=== PATIENT | female | born 1935 | race Caucasian/White ===

== ENCOUNTER 2019-10-11 13:30 | Inpatient (IN) ==
[2019-10-11] MEDS ORDERED: MAGNESIUM SULF RIDER 4 GM in PREMIX 1 EACH IV PRN (13:32)
[2019-10-11] MEDS ORDERED: MAGNESIUM SULF RIDER 2 GM in PREMIX 1 EACH IV PRN (13:32)
[2019-10-11] MEDS ORDERED: MORPHINE 4 MG/1 ML VIAL IV PRN (13:32)
[2019-10-11] MEDS ORDERED: BISACODYL 5 MG TABLET PO PRN (13:32)
[2019-10-11] MEDS ORDERED: ACETAMINOPHEN 325 MG TABLET PO PRN (13:32)
[2019-10-11] MEDS ORDERED: LACTULOSE 20 GM/30 ML UDCUP PO PRN (13:32)
[2019-10-11] MEDS ORDERED: ONDANSETRON 4 MG/2 ML VIAL IV PRN (13:32)
[2019-10-11] MEDS ORDERED: POTASSIUM CHLORIDE 20 MEQ TABLET PO PRN (13:32)
[2019-10-11] MEDS ORDERED: ZALEPLON 5 MG CAPSULE PO PRN (13:32)
[2019-10-11] MEDS ORDERED: hydrALAZINE 20 MG/1 ML VIAL IV PRN (13:32)
[2019-10-11] MEDS ORDERED: diphenhydrAMINE CAP 25 MG CAPSULE PO PRN (13:32)
[2019-10-11] MEDS ORDERED: guaiFENesin/DM ER 600-30 MG TABLET PO PRN (13:32)
[2019-10-11] MEDS ORDERED: SIMETHICONE CHEW 125 MG TABLET PO PRN (13:32)
[2019-10-11] MEDS ORDERED: ENOXAPARIN 40 MG/0.4 ML SYRINGE SUBCUT SCH (14:00)
[2019-10-11] MEDS ORDERED: NITROGLYCERIN DRIP 50 MG/250 ML BOTTLE IV PRN (15:16)
[2019-10-11] MEDS ORDERED: DEXTROSE 50% 25 GM/50 ML VIAL IV PRN (15:55)
[2019-10-11] MEDS ORDERED: GLUCAGON 1 MG VIAL IM PRN (15:55)
[2019-10-11] MEDS: HEPARIN DRIP 25,000 UNITS/500 ML PREMIX IV SCH (16:30)
[2019-10-11 16:56] LABS: CKMB % 7.2 %
[2019-10-11 17:05] LABS: Troponin I 5.42 NG/ML (0.00-0.045)
[2019-10-11] MEDS: INSULIN LISPRO 100 UNIT/ML SUBCUT SCH ×2 (18:12→23:19)
[2019-10-11 20:16] LABS: CKMB % 6.7 %
[2019-10-11 20:23] LABS: Troponin I 4.83 NG/ML (0.00-0.045)
[2019-10-11] MEDS: MELATONIN 3 MG TABLET PO SCH (20:33)
[2019-10-11] MEDS: carvediloL 3.125 MG TABLET PO SCH (20:34)
[2019-10-11] MEDS: DILTIAZEM 30 MG TABLET PO SCH (20:34)
[2019-10-12 01:38] LABS: Basophils # 0.1 10*3/uL (0.0-0.2); Basophils % 0.6 % (0.0-0.8); Eosinophils # 0.4 10*3/uL (0.0-0.87); Hematocrit 29.5 VOL% (35.7-47.0); Hemoglobin 8.7 GM/DL (12.0-16.0); Immature Granulocytes % 0.2 %; Immature Granulocytes Absolute 0.02 #; Lymphocytes # 2.6 10*3/uL (1.4-4.0); Lymphocytes % 31.9 % (21.3-54.2); Mean Corpuscular HGB Conc 29.5 GM/DL (32-36); Mean Corpuscular Volume 79.3 FL (87-102); Mean Platelet Volume 10.4 FL (9.6-12.0); Neutrophils % 55.3 % (38.7-73.9); Platelet Count 218 T/CUMM (130-400); Red Blood Count 3.72 MC/CUMM (3.8-5.5); Red Cell Distribution Width 16.7 % (9.3-17.3); White Blood Count 8.1 T/CUMM (4-12)
[2019-10-12 02:09] LABS: Albumin 2.9 G/DL (3.4-5.0); Bilirubin,Total 0.5 MG/DL (0.2-1.0); Calcium 8.9 MG/DL (8.5-10.1); Osmolality,Calculated 277.2 MOS/KG (273-304); Risk Ratio 4.84; Thyroid Stimulating Hormone 4.19 uIU/ml (0.358-3.74); VLDL CHOLESTEROL 44.4 MG/DL
[2019-10-12] MEDS: HEPARIN DRIP 25,000 UNITS/500 ML PREMIX IV SCH (06:32)
[2019-10-12] MEDS: gemfibroziL 600 MG TABLET PO SCH ×2 (06:35→16:14)
[2019-10-12] MEDS: INSULIN LISPRO 100 UNIT/ML SUBCUT SCH ×4 (06:35→20:54)
[2019-10-12] MEDS ORDERED: diphenhydrAMINE CAP 25 MG CAPSULE PO ONE (08:17)
[2019-10-12] MEDS ORDERED: DIAZEPAM 5 MG TABLET PO ONE (08:17)
[2019-10-12] MEDS ORDERED: HEPARIN/NACL 0.9% 2 UNITS/ML 1,000 ML IV ONE (08:26)
[2019-10-12] MEDS ORDERED: HYDROCORTISONE 100 MG VIAL IV ONE (08:27)
[2019-10-12] MEDS ORDERED: diphenhydrAMINE CAP 50 MG CAPSULE PO ONE (08:28)
[2019-10-12] MEDS ORDERED: LIDOCAINE 1% 20 ML VIAL ONE (09:01)
[2019-10-12] MEDS ORDERED: fentaNYL 100 MCG/2 ML VIAL ONE (09:03)
[2019-10-12] MEDS ORDERED: MIDAZOLAM 2 MG/2 ML VIAL ONE (09:03)
[2019-10-12] MEDS ORDERED: EPTIFIBATIDE 20,000 MCG/10 ML VIAL ONE (09:17)
[2019-10-12] MEDS ORDERED: EPTIFIBATIDE 0 MG/0 ML BOTTLE IV ONE (09:17)
[2019-10-12] MEDS: SODIUM CHLORIDE 0.45% 1,000 ML IV SCH (10:15)
[2019-10-12] MEDS: DILTIAZEM 30 MG TABLET PO SCH ×3 (12:27→20:45)
[2019-10-12] MEDS: GLIMEPIRIDE 4 MG TABLET PO SCH (12:45)
[2019-10-12] MEDS: ASPIRIN EC 81 MG TABLET PO SCH (12:45)
[2019-10-12] MEDS: FERROUS SULFATE 325 MG TABLET PO SCH (12:45)
[2019-10-12] MEDS: ISOSORBIDE MONONITRATE 30 MG TABLET PO SCH (12:45)
[2019-10-12] MEDS: carvediloL 3.125 MG TABLET PO SCH ×2 (12:45→20:46)
[2019-10-12] MEDS: EZETIMIBE 10 MG TABLET PO SCH (12:46)
[2019-10-12] MEDS: PANTOPRAZOLE 40 MG TABLET PO SCH (12:46)
[2019-10-12] MEDS: CLOPIDOGREL 75 MG TABLET PO SCH (12:46)
[2019-10-12] MEDS: MAGNESIUM OXIDE 400 MG TABLET PO SCH (12:46)
[2019-10-12 14:04] LABS: Basophils % 0.2 % (0.0-0.8); Eosinophils % 0.2 % (0.00-10.9); Hematocrit 31.2 VOL% (35.7-47.0); Hemoglobin 9.1 GM/DL (12.0-16.0); Immature Granulocytes % 0.5 %; Immature Granulocytes Absolute 0.03 #; Lymphocytes # 0.7 10*3/uL (1.4-4.0); Mean Corpuscular HGB Conc 29.2 GM/DL (32-36); Mean Corpuscular Volume 82.1 FL (87-102); Mean Platelet Volume 10.8 FL (9.6-12.0); Monocytes % 0.9 % (1.7-12.7); Neutrophils % 85.2 % (38.7-73.9); Platelet Count 218 T/CUMM (130-400); Red Cell Distribution Width 16.7 % (9.3-17.3); White Blood Count 5.6 T/CUMM (4-12)
[2019-10-12] MEDS: diphenhydrAMINE CAP 25 MG CAPSULE PO SCH ×2 (14:32→17:23)
[2019-10-12 14:35] LABS: % Iron Saturation 22.9 % (18-50)
[2019-10-12 14:54] LABS: Folate 14.7 NG/ML (5.4-24.0)
[2019-10-12] MEDS: MELATONIN 3 MG TABLET PO SCH (20:47)
[2019-10-12] MEDS: INSULIN GLARGINE 100 UNIT/ML SUBCUT SCH (20:51)
[2019-10-12] MEDS ORDERED: NON-FORMULARY MEDICATION (Omeprazole 20 MG) PO SCH (21:00)
[2019-10-13 06:10] LABS: Basophils % 0.4 % (0.0-0.8); Eosinophils # 0.1 10*3/uL (0.0-0.87); Eosinophils % 1.6 % (0.00-10.9); Hematocrit 28.9 VOL% (35.7-47.0); Hemoglobin 8.5 GM/DL (12.0-16.0); Immature Granulocytes % 0.4 %; Immature Granulocytes Absolute 0.03 #; Lymphocytes # 2.9 10*3/uL (1.4-4.0); Lymphocytes % 36.4 % (21.3-54.2); Mean Corpuscular HGB Conc 29.4 GM/DL (32-36); Mean Corpuscular Volume 82.1 FL (87-102); Mean Platelet Volume 11.2 FL (9.6-12.0); Monocytes % 8.8 % (1.7-12.7); Neutrophils % 52.4 % (38.7-73.9); Platelet Count 223 T/CUMM (130-400); Red Blood Count 3.52 MC/CUMM (3.8-5.5)
[2019-10-13 06:39] LABS: Calcium 8.7 MG/DL (8.5-10.1); Osmolality,Calculated 284.5 MOS/KG (273-304)
[2019-10-13] MEDS: gemfibroziL 600 MG TABLET PO SCH ×2 (09:38→17:14)
[2019-10-13] MEDS: ISOSORBIDE MONONITRATE 30 MG TABLET PO SCH (09:39)
[2019-10-13] MEDS: GLIMEPIRIDE 4 MG TABLET PO SCH (09:39)
[2019-10-13] MEDS: FERROUS SULFATE 325 MG TABLET PO SCH (09:39)
[2019-10-13] MEDS: MAGNESIUM OXIDE 400 MG TABLET PO SCH (09:39)
[2019-10-13] MEDS: ASPIRIN EC 81 MG TABLET PO SCH (09:39)
[2019-10-13] MEDS: EZETIMIBE 10 MG TABLET PO SCH (09:40)
[2019-10-13] MEDS: PANTOPRAZOLE 40 MG TABLET PO SCH (09:40)
[2019-10-13] MEDS: CLOPIDOGREL 75 MG TABLET PO SCH (09:40)
[2019-10-13] MEDS: carvediloL 25 MG TABLET PO SCH ×2 (10:35→22:01)
[2019-10-13] MEDS: INSULIN LISPRO 100 UNIT/ML SUBCUT SCH ×4 (10:36→22:00)
[2019-10-13] MEDS: DILTIAZEM 30 MG TABLET PO SCH (11:03)
[2019-10-13] MEDS: carvediloL 3.125 MG TABLET PO SCH (11:03)
[2019-10-13] MEDS: INSULIN GLARGINE 100 UNIT/ML SUBCUT SCH (22:00)
[2019-10-13] MEDS: MELATONIN 3 MG TABLET PO SCH (22:01)
[2019-10-14 05:02] LABS: Basophils # 0.1 10*3/uL (0.0-0.2); Basophils % 0.7 % (0.0-0.8); Eosinophils # 0.4 10*3/uL (0.0-0.87); Eosinophils % 4.6 % (0.00-10.9); Hematocrit 29.2 VOL% (35.7-47.0); Hemoglobin 8.8 GM/DL (12.0-16.0); Immature Granulocytes % 0.3 %; Immature Granulocytes Absolute 0.02 #; Lymphocytes # 2.8 10*3/uL (1.4-4.0); Lymphocytes % 36.6 % (21.3-54.2); Mean Corpuscular HGB Conc 30.1 GM/DL (32-36); Mean Corpuscular Volume 79.3 FL (87-102); Mean Platelet Volume 10.6 FL (9.6-12.0); Monocytes % 9.3 % (1.7-12.7); Neutrophils % 48.5 % (38.7-73.9); Platelet Count 210 T/CUMM (130-400); Red Blood Count 3.68 MC/CUMM (3.8-5.5); Red Cell Distribution Width 17.1 % (9.3-17.3); White Blood Count 7.6 T/CUMM (4-12)
[2019-10-14 05:26] LABS: Calcium 8.8 MG/DL (8.5-10.1); Osmolality,Calculated 283.4 MOS/KG (273-304)
[2019-10-14] MEDS: INSULIN LISPRO 100 UNIT/ML SUBCUT SCH ×4 (08:34→20:12)
[2019-10-14] MEDS: GLIMEPIRIDE 4 MG TABLET PO SCH (09:38)
[2019-10-14] MEDS: PANTOPRAZOLE 40 MG TABLET PO SCH (09:38)
[2019-10-14] MEDS: MAGNESIUM OXIDE 400 MG TABLET PO SCH (09:38)
[2019-10-14] MEDS: FERROUS SULFATE 325 MG TABLET PO SCH (09:39)
[2019-10-14] MEDS: carvediloL 25 MG TABLET PO SCH ×2 (09:39→21:59)
[2019-10-14] MEDS: ISOSORBIDE MONONITRATE 30 MG TABLET PO SCH (09:39)
[2019-10-14] MEDS: CLOPIDOGREL 75 MG TABLET PO SCH (09:40)
[2019-10-14] MEDS: gemfibroziL 600 MG TABLET PO SCH ×2 (09:40→16:41)
[2019-10-14] MEDS: EZETIMIBE 10 MG TABLET PO SCH (09:41)
[2019-10-14] MEDS: ASPIRIN EC 81 MG TABLET PO SCH (09:42)
[2019-10-14] MEDS: ALUMINUM/MAGNES/SIMETH MAX STR 30 ML UDCUP PO PRN (13:20)
[2019-10-14] MEDS ORDERED: ALUM/MAG/SIMETH/LIDO VISC 1:1 30 ML BOTTLE PO ONE (16:12)
[2019-10-14] MEDS: CALCIUM CARBONATE CHEW 500 MG TABLET PO PRN (20:50)
[2019-10-14] MEDS: MELATONIN 3 MG TABLET PO SCH (21:59)
[2019-10-14] MEDS: INSULIN GLARGINE 100 UNIT/ML SUBCUT SCH (21:59)
[2019-10-15] MEDS: CALCIUM CARBONATE CHEW 500 MG TABLET PO PRN (02:22)
[2019-10-15] MEDS: ALUMINUM/MAGNES/SIMETH MAX STR 30 ML UDCUP PO PRN (02:22)
[2019-10-15 06:27] LABS: Basophils % 0.5 % (0.0-0.8); Eosinophils # 0.3 10*3/uL (0.0-0.87); Eosinophils % 3.8 % (0.00-10.9); Hematocrit 29.9 VOL% (35.7-47.0); Immature Granulocytes % 0.5 %; Immature Granulocytes Absolute 0.04 #; Lymphocytes # 2.9 10*3/uL (1.4-4.0); Lymphocytes % 38.1 % (21.3-54.2); Mean Corpuscular HGB Conc 30.1 GM/DL (32-36); Mean Corpuscular Volume 79.1 FL (87-102); Mean Platelet Volume 11.2 FL (9.6-12.0); Monocytes % 8.9 % (1.7-12.7); Neutrophils % 48.2 % (38.7-73.9); Platelet Count 241 T/CUMM (130-400); Red Blood Count 3.78 MC/CUMM (3.8-5.5); Red Cell Distribution Width 17.1 % (9.3-17.3); White Blood Count 7.7 T/CUMM (4-12)
[2019-10-15 06:54] LABS: Calcium 9.4 MG/DL (8.5-10.1); Osmolality,Calculated 278.8 MOS/KG (273-304)
[2019-10-15] MEDS: INSULIN LISPRO 100 UNIT/ML SUBCUT SCH ×2 (09:15→11:56)
[2019-10-15] MEDS: CLOPIDOGREL 75 MG TABLET PO SCH (09:38)
[2019-10-15] MEDS: FERROUS SULFATE 325 MG TABLET PO SCH (09:39)
[2019-10-15] MEDS: ASPIRIN EC 81 MG TABLET PO SCH (09:39)
[2019-10-15] MEDS: carvediloL 25 MG TABLET PO SCH (09:39)
[2019-10-15] MEDS: ISOSORBIDE MONONITRATE 30 MG TABLET PO SCH (09:39)
[2019-10-15] MEDS: MAGNESIUM OXIDE 400 MG TABLET PO SCH (09:39)
[2019-10-15] MEDS: PANTOPRAZOLE 40 MG TABLET PO SCH (09:39)
[2019-10-15] MEDS: gemfibroziL 600 MG TABLET PO SCH (09:39)
[2019-10-15] MEDS: EZETIMIBE 10 MG TABLET PO SCH (09:39)
[2019-10-15] MEDS: GLIMEPIRIDE 4 MG TABLET PO SCH (10:54)
[2019-10-15 12:41] VITALS: BP 119/54
[2019-10-15] MEDS ORDERED: PANTOPRAZOLE 40 MG TABLET PO SCH (21:00)
== END 2019-10-15 16:49 | disposition home or self-care (01) | DRG 282 ==
LOC: N.CLINP 16:10 → N.TELES 10-13 11:04
PROVIDERS: ADMIT Internal Medicine Cardiovascular Disease; ATTEND Internal Medicine Cardiovascular Disease
PROC: CLCCHCL (ICD-10-PCS; 2019-10-12 09:15)

== ENCOUNTER 2022-07-06 02:53 | Inpatient (IN) ==
[2022-07-06] MEDS ORDERED: hydrALAZINE 20 MG/1 ML VIAL IV PRN (05:40)
[2022-07-06] MEDS ORDERED: ONDANSETRON 4 MG/2 ML VIAL IV PRN (05:40)
[2022-07-06] MEDS ORDERED: ACETAMINOPHEN 325 MG TABLET PO PRN (05:40)
[2022-07-06] MEDS ORDERED: LACTATED RINGERS 1,000 ML IV SCH (06:15)
[2022-07-06] MEDS: HYDROmorphone 1 MG/1 ML SYRINGE IV PRN ×3 (06:53→16:19)
[2022-07-06 06:59] LABS: Basophils % 0.2 % (0.0-0.8); Hematocrit 32.2 VOL% (35.7-47.0); Hemoglobin 10.6 GM/DL (12.0-16.0); Immature Granulocytes % 0.5 %; Immature Granulocytes Absolute 0.07 #; Lymphocytes # 1.4 10*3/uL (1.4-4.0); Lymphocytes % 9.9 % (21.3-54.2); Mean Corpuscular HGB Conc 32.9 GM/DL (32-36); Mean Platelet Volume 11.4 FL (9.6-12.0); Monocytes # 0.6 10*3/uL (0.11-0.8); Monocytes % 4.1 % (1.7-12.7); Neutrophils % 85.3 % (38.7-73.9); Platelet Count 259 T/CUMM (130-400); Red Blood Count 3.66 MC/CUMM (3.8-5.5); Red Cell Distribution Width 12.9 % (9.3-17.3); White Blood Count 14.2 T/CUMM (4-12)
[2022-07-06 07:10] LABS: Albumin 3.4 G/DL (3.4-5.0); Bilirubin,Total 0.7 MG/DL (0.20-1.00); Calcium 9.3 MG/DL (8.5-10.1); Osmolality,Calculated 296.8 MOS/KG (273-304); Potassium 4.3 MMOL/L (3.5-5.1); Thyroid Stimulating Hormone 1.65 uIU/ml (0.358-3.74); Total Protein 7.4 G/DL (6.4-8.2)
[2022-07-06 07:40] LABS: INR 1.1; PT Patient Result 11.6 SECS (10.1-12.1); Partial Thromboplastin Time 25.6 SECS (23.7-32.9)
[2022-07-06] MEDS ORDERED: CHLORPHENIRAMINE MALEATE 4 MG PO PRN (08:19)
[2022-07-06] MEDS ORDERED: DIGOXIN 0.125 MG TABLET PO SCH (08:30)
[2022-07-06] MEDS: amLODIPine 2.5 MG TABLET PO SCH (08:48)
[2022-07-06] MEDS: PANTOPRAZOLE 40 MG TABLET PO SCH (08:48)
[2022-07-06] MEDS: DULoxetine 20 MG CAPSULE PO SCH (08:48)
[2022-07-06] MEDS: ISOSORBIDE MONONITRATE 30 MG TABLET PO SCH (08:48)
[2022-07-06] MEDS: EZETIMIBE 10 MG TABLET PO SCH (08:49)
[2022-07-06] MEDS: gemfibroziL 600 MG TABLET PO SCH (08:49)
[2022-07-06] MEDS: ENOXAPARIN 40 MG/0.4 ML SYRINGE SUBCUT SCH (08:50)
[2022-07-06] MEDS: MAGNESIUM OXIDE 400 MG TABLET PO SCH ×2 (08:52→22:09)
[2022-07-06] MEDS ORDERED: PANTOPRAZOLE 40 MG TABLET PO SCH (09:00)
[2022-07-06] MEDS ORDERED: GLUCAGON 1 MG VIAL IM PRN (10:48)
[2022-07-06] MEDS ORDERED: DEXTROSE 10% 250 ML BAG IV PRN (10:48)
[2022-07-06] MEDS: INSULIN LISPRO 100 UNIT/ML SUBCUT SCH ×4 (10:59→22:09)
[2022-07-06 14:10] LABS: Bacteria,Urine Many /HPF (Few); Glucose,Urine (UA) Negative (Negative); Hyaline Casts,Urine 5 /LPF (0-3); Ketones,Urine Trace mg/dL (Negative); Mucus,Urine Occasional /LPF (Occasional); Nitrite,Urine Negative (Negative); Protein,Urine Negative (Negative); RBC,Urine 7 /HPF (0-4); Squamous Epithelial Cell,Urine Occasional /HPF (0-10); Urine Appearance Clear (Clear); Urine Color Yellow (Yellow); Urine Specific Gravity 1.025 (1.001-1.035); Urine pH 5.5 (4.5-8.0)
[2022-07-06 14:11] LABS: Bilirubin,Urine Small mg/dL (Negative); Blood, Urine Trace mg/dL (Negative); Urine Urobilinogen 0.2 eU/dL (<2.0)
[2022-07-06] MEDS: LACTATED RINGERS 1,000 ML IV SCH (16:20)
[2022-07-06] MEDS ORDERED: carvediloL 25 MG TABLET PO SCH (17:00)
[2022-07-06] MEDS: MELATONIN 3 MG TABLET PO SCH (22:08)
[2022-07-06] MEDS: INSULIN GLARGINE 100 UNIT/ML SUBCUT SCH (22:09)
[2022-07-07] MEDS: LACTATED RINGERS 1,000 ML IV SCH ×3 (06:43→13:18)
[2022-07-07] MEDS ORDERED: propofoL 200 MG/20 ML VIAL IV ONE (06:56)
[2022-07-07] MEDS ORDERED: LIDOCAINE 2% 5 ML VIAL ONE (06:56)
[2022-07-07] MEDS ORDERED: SEVOFLURANE 1 UNIT/15 MINUTE INH ONE ×5 (06:56→12:30)
[2022-07-07] MEDS ORDERED: ONDANSETRON 4 MG/2 ML VIAL ONE (06:56)
[2022-07-07 06:57] LABS: Basophils # 0.1 10*3/uL (0.0-0.2); Basophils % 0.5 % (0.0-0.8); Eosinophils # 0.1 10*3/uL (0.0-0.87); Eosinophils % 0.8 % (0.00-10.9); Hematocrit 26.1 VOL% (35.7-47.0); Immature Granulocytes % 0.6 %; Immature Granulocytes Absolute 0.06 #; Lymphocytes # 2.5 10*3/uL (1.4-4.0); Lymphocytes % 25.4 % (21.3-54.2); Mean Corpuscular Volume 90.6 FL (87-102); Mean Platelet Volume 11.4 FL (9.6-12.0); Monocytes # 0.8 10*3/uL (0.11-0.8); Monocytes % 8.5 % (1.7-12.7); Neutrophils % 64.2 % (38.7-73.9); Red Cell Distribution Width 13.2 % (9.3-17.3)
[2022-07-07] MEDS ORDERED: fentaNYL 100 MCG/2 ML VIAL ONE (06:57)
[2022-07-07] MEDS ORDERED: FAMOTIDINE 20 MG/2 ML VIAL IV ONE (06:57)
[2022-07-07] MEDS ORDERED: ROCURONIUM 50 MG/5 ML VIAL IV ONE (07:00)
[2022-07-07 07:11] LABS: Hemoglobin 8.6 GM/DL (12.0-16.0); Red Blood Count 2.88 MC/CUMM (3.8-5.5); White Blood Count 9.8 T/CUMM (4-12)
[2022-07-07 07:12] LABS: Platelet Count 195 T/CUMM (130-400)
[2022-07-07 07:15] LABS: Calcium 8.4 MG/DL (8.5-10.1); Osmolality,Calculated 299.5 MOS/KG (273-304)
[2022-07-07] MEDS: HYDROmorphone 1 MG/1 ML SYRINGE IV PRN ×2 (09:07→21:46)
[2022-07-07] MEDS: DULoxetine 20 MG CAPSULE PO SCH (09:11)
[2022-07-07] MEDS: carvediloL 25 MG TABLET PO SCH ×2 (09:11→16:28)
[2022-07-07] MEDS: amLODIPine 2.5 MG TABLET PO SCH (09:11)
[2022-07-07] MEDS: MAGNESIUM OXIDE 400 MG TABLET PO SCH ×2 (09:11→20:12)
[2022-07-07] MEDS: ISOSORBIDE MONONITRATE 30 MG TABLET PO SCH (09:11)
[2022-07-07] MEDS: EZETIMIBE 10 MG TABLET PO SCH (09:11)
[2022-07-07] MEDS: PANTOPRAZOLE 40 MG TABLET PO SCH (09:11)
[2022-07-07] MEDS: gemfibroziL 600 MG TABLET PO SCH (09:11)
[2022-07-07] MEDS: INSULIN LISPRO 100 UNIT/ML SUBCUT SCH ×4 (09:38→21:38)
[2022-07-07] MEDS ORDERED: DEXAMETHASONE 4 MG/1 ML VIAL ONE ×2 (09:44→10:28)
[2022-07-07] MEDS ORDERED: ACETAMINOPHEN INJ 1,000 MG/100 ML VIAL IV ONE (09:44)
[2022-07-07] MEDS ORDERED: HYDROmorphone 1 MG/1 ML SYRINGE IV ONE (10:03)
[2022-07-07] MEDS ORDERED: ROPIVACAINE 0.5% 30 ML VIAL ONE (10:28)
[2022-07-07] MEDS ORDERED: LIDOCAINE 1% 5 ML VIAL ONE (10:28)
[2022-07-07] MEDS ORDERED: ceFAZolin 1,000 MG VIAL ONE (11:41)
[2022-07-07] MEDS ORDERED: ePHEDrine 50 MG/ML VIAL ONE (11:50)
[2022-07-07] MEDS ORDERED: GLYCOPYRROLATE 0.4 MG/2 ML VIAL ONE (12:18)
[2022-07-07] MEDS ORDERED: NEOSTIGMINE 10 MG/10 ML VIAL ONE (12:19)
[2022-07-07] MEDS ORDERED: NALOXONE 0.4 MG/ML VIAL ONE (12:36)
[2022-07-07] MEDS ORDERED: DEXTROSE 50% 25 GM/50 ML VIAL IV PRN (18:26)
[2022-07-07] MEDS: MELATONIN 3 MG TABLET PO SCH (20:12)
[2022-07-07] MEDS: INSULIN GLARGINE 100 UNIT/ML SUBCUT SCH (21:39)
[2022-07-08] MEDS: HYDROmorphone 1 MG/1 ML SYRINGE IV PRN ×3 (03:48→13:44)
[2022-07-08] MEDS: LACTATED RINGERS 1,000 ML IV SCH (04:48)
[2022-07-08 05:11] LABS: Basophils % 0.1 % (0.0-0.8); Hematocrit 24.1 VOL% (35.7-47.0); Hemoglobin 7.7 GM/DL (12.0-16.0); Immature Granulocytes % 0.6 %; Immature Granulocytes Absolute 0.07 #; Lymphocytes # 1.1 10*3/uL (1.4-4.0); Lymphocytes % 9.5 % (21.3-54.2); Mean Corpuscular Volume 90.6 FL (87-102); Mean Platelet Volume 11.5 FL (9.6-12.0); Monocytes # 0.7 10*3/uL (0.11-0.8); Monocytes % 6.2 % (1.7-12.7); Neutrophils % 83.6 % (38.7-73.9); Platelet Count 185 T/CUMM (130-400); Red Blood Count 2.66 MC/CUMM (3.8-5.5); White Blood Count 11.4 T/CUMM (4-12)
[2022-07-08 05:26] LABS: Calcium 8.6 MG/DL (8.5-10.1); Osmolality,Calculated 295.7 MOS/KG (273-304); Potassium 4.4 MMOL/L (3.5-5.1)
[2022-07-08] MEDS: DULoxetine 20 MG CAPSULE PO SCH (08:14)
[2022-07-08] MEDS: gemfibroziL 600 MG TABLET PO SCH (08:14)
[2022-07-08] MEDS: PANTOPRAZOLE 40 MG TABLET PO SCH (08:14)
[2022-07-08] MEDS: EZETIMIBE 10 MG TABLET PO SCH (08:14)
[2022-07-08] MEDS: MAGNESIUM OXIDE 400 MG TABLET PO SCH ×2 (08:14→20:53)
[2022-07-08] MEDS: carvediloL 25 MG TABLET PO SCH ×2 (08:14→16:12)
[2022-07-08] MEDS: INSULIN LISPRO 100 UNIT/ML SUBCUT SCH ×4 (08:14→22:25)
[2022-07-08 08:48] LABS: % Iron Saturation 6.2 % (18-50); Ferritin 58.5 ng/mL (8-252)
[2022-07-08] MEDS: cefTRIAXone 1,000 MG in SODIUM CHLORIDE 0.9% 100 ML IV SCH (09:36)
[2022-07-08] MEDS: ENOXAPARIN 40 MG/0.4 ML SYRINGE SUBCUT SCH (09:37)
[2022-07-08 10:09] LABS: Folate 6.52 NG/ML (5.38-24.0)
[2022-07-08] MEDS: FERRIC GLUCONATE COMPLEX 125 MG in SODIUM CHLORIDE 0.9% 100 ML IV SCH (12:43)
[2022-07-08] MEDS: POLYETHYLENE GLYCOL POWDER 17 GM PACK PO SCH (12:45)
[2022-07-08] MEDS ORDERED: DIGOXIN 0.125 MG TABLET PO SCH (13:00)
[2022-07-08] MEDS: MAGNESIUM HYDROXIDE SUSP 30 ML UDCUP PO PRN (18:39)
[2022-07-08] MEDS: MELATONIN 3 MG TABLET PO SCH (20:51)
[2022-07-08] MEDS: DOCUSATE SODIUM 100 MG CAPSULE PO SCH (20:53)
[2022-07-08] MEDS: INSULIN GLARGINE 100 UNIT/ML SUBCUT SCH (20:53)
[2022-07-09 05:12] LABS: Basophils % 0.2 % (0.0-0.8); Eosinophils # 0.1 10*3/uL (0.0-0.87); Eosinophils % 0.6 % (0.00-10.9); Hematocrit 23.7 VOL% (35.7-47.0); Hemoglobin 7.7 GM/DL (12.0-16.0); Immature Granulocytes % 0.4 %; Immature Granulocytes Absolute 0.04 #; Lymphocytes # 2.5 10*3/uL (1.4-4.0); Lymphocytes % 26.5 % (21.3-54.2); Mean Corpuscular HGB Conc 32.5 GM/DL (32-36); Mean Corpuscular Volume 91.2 FL (87-102); Mean Platelet Volume 11.7 FL (9.6-12.0); Monocytes # 0.8 10*3/uL (0.11-0.8); Monocytes % 8.9 % (1.7-12.7); NRBC # 0.06 10*3/uL; Neutrophils % 63.4 % (38.7-73.9); Platelet Count 184 T/CUMM (130-400); Red Cell Distribution Width 13.2 % (9.3-17.3); White Blood Count 9.3 T/CUMM (4-12)
[2022-07-09 05:40] LABS: Calcium 8.3 MG/DL (8.5-10.1); Osmolality,Calculated 288.7 MOS/KG (273-304); Potassium 4.1 MMOL/L (3.5-5.1)
[2022-07-09] MEDS: INSULIN LISPRO 100 UNIT/ML SUBCUT SCH (08:03)
[2022-07-09] MEDS: MAGNESIUM HYDROXIDE SUSP 30 ML UDCUP PO PRN (08:51)
[2022-07-09] MEDS: DOCUSATE SODIUM 100 MG CAPSULE PO SCH (08:52)
[2022-07-09] MEDS: ENOXAPARIN 40 MG/0.4 ML SYRINGE SUBCUT SCH (08:52)
[2022-07-09] MEDS: carvediloL 25 MG TABLET PO SCH (08:52)
[2022-07-09] MEDS: PANTOPRAZOLE 40 MG TABLET PO SCH (08:52)
[2022-07-09] MEDS: DULoxetine 20 MG CAPSULE PO SCH (08:52)
[2022-07-09] MEDS: EZETIMIBE 10 MG TABLET PO SCH (08:52)
[2022-07-09] MEDS: gemfibroziL 600 MG TABLET PO SCH (08:52)
[2022-07-09] MEDS: POLYETHYLENE GLYCOL POWDER 17 GM PACK PO SCH (08:53)
[2022-07-09] MEDS: cefTRIAXone 1,000 MG in SODIUM CHLORIDE 0.9% 100 ML IV SCH (08:53)
[2022-07-09] MEDS: MAGNESIUM OXIDE 400 MG TABLET PO SCH (08:54)
[2022-07-09] MEDS: FERRIC GLUCONATE COMPLEX 125 MG in SODIUM CHLORIDE 0.9% 100 ML IV SCH (09:42)
[2022-07-09 10:56] VITALS: BP 112/61
== END 2022-07-09 11:09 | disposition swing bed (61) | DRG 481 ==
LOC: SUATTDRO 05:18 → N.3E 05:18
PROVIDERS: ADMIT Internal Medicine; ATTEND Internal Medicine